=== PATIENT | male | born 1975 | race African-American/Black ===

== ENCOUNTER 2019-03-11 01:21 | Observation (INO) | payer MEDICAID ==
--- NOTE | 2019-03-11 01:22 | EDPHY ---
H & P Time Seen by Provider: 03/11/19 01:21 HPI/ROS: Chief Complaint: Seizure HPI: 43-year-old male with a known seizure disorder brought in by EMS after had only a witnessed tonic-clonic seizure. On EMS arrival the patient was actively seizing. He is given 5 mg of Versed. He has been postictal confused since. Patient has been in the emergency department in the past. Patient has a history of cognitive impairment. He was admitted here and deemed incompetent to make decisions in his admitted to [facility] on the 8th of this month. Is not clear if he has been taking his medications. Also has a history of hypertension. Patient is minimally verbal at baseline. ROS: Not available secondary to the patient's confusion PMH: Seizure disorder, hypertension Social History: No smoking, no alcohol, no recreational drug use Family History: non-contributory Physical Exam: Gen: Awake, Alert, continues, non conversant, postictal HEENT: Nose: no rhinorrhea Eyes: PERRLA, EOMI Mouth: Moist mucosa Neck: Supple, no JVD Chest: nontender, lungs clear to auscultation Heart: S1, S2 normal, no murmur Abd: Soft, non-tender, no guarding Back: no CVA tenderness, no midline tenderness Ext: no edema, non-tender Skin: no rash Neuro: CN II-XII intact, Sensation grossly intact, Strength 5/5 in bilateral upper and lower extremities Constitutional: Initial Vital Signs Temperature (C) 36.7 C 03/11/19 01:29 Heart Rate 98 03/11/19 01:29 Respiratory Rate 18 03/11/19 01:29 Blood Pressure 146/124 H 03/11/19 01:29 O2 Sat (%) 95 03/11/19 01:29 O2 Delivery Mode Room Air Allergies/Adverse Reactions: Unable to Assess Allergy (Unverified 03/11/19 01:29) Medical Decision Making ED Course/Re-evaluation: 43-year-old male brought in for possible seizure. He is currently at his baseline which is minimally verbal. I have discussed with the hospitalist. They will admit to their service for further evaluation and care. Departure - Departure Disposition: [facility] Inpatient Acute Clinical Impression: Seizure disorder Condition: Fair Referrals: Patient,NotPresent [Primary Care Provider] - As per Instructions
[2019-03-11 02:27] LABS: PLATELET COUNT 274 10^3/uL (150-400)
[2019-03-11] MEDS ORDERED: ONDANSETRON DISINTEGRATING 4 MG TAB PO PRN (03:27)
[2019-03-11] MEDS ORDERED: ACETAMINOPHEN 325 MG TAB PO PRN (03:27)
[2019-03-11] MEDS ORDERED: ONDANSETRON 4 MG/2 ML VIAL IVP PRN (03:27)
[2019-03-11] MEDS ORDERED: NS 1,000 ML IV SCH (03:30)
[2019-03-11] MEDS ORDERED: LORazepam 2 MG/ML INJ IVP PRN ×2 (04:00→13:14)
--- NOTE | 2019-03-11 04:05 | PDGENHP ---
History and Physical - Chief Complaint confusion, question of seizure - History of Present Illness Mr Dewitt is 43 yo M with pmhx significant for seizure disorder, cognitive impairment with possible underlying personality d/o who presents to the ED today after he was found down. Patient was discharged on 02/18/2019 after 9 day hospitalization to [facility]. He was deemed competent by psychiatry although he was noted to have some schizotypal personality traits and paranoia particularly regarding his insurance which patient has again today. Patient left [facility]. He requests that he write out most of his answers on paper. He reports that he had meeting with 5 people from [facility] regarding a possible transfer but issues arose with his correction care insurance. I asked the patient why he felt he had to leave in the middle of the night on a Monday and patient responded that he had his food taken away from him and became upset. Patient was subsequently found on the ground by EMS. witnessed tonic-clonic seizure activity and patient was given versed. He appears to be at his baseline mentation. As patient left [facility] he is not eligible for re-admission to [facility]. They report at baseline patient is minimally verbal but alert. It is noted that patient did receive his evening dose of keppra. Currently patient is c/o a frontal headache. no changes in vision and that he is hungry. no other complaints. History Information - Allergies/Home Medication List Allergies/Adverse Reactions: Penicillins Allergy (Verified 03/11/19 03:13) Home Medications: Metoprolol Tartrate 03/11/19 [Last Taken Unknown] Metoprolol Tartrate 03/11/19 [Last Taken Unknown] Multivitamin [One Daily] 1 each PO 03/11/19 [Last Taken Unknown] Sennosides/Docusate Sodium [Colace 2-in-1 Tablet] 1 each PO 03/11/19 [Last Taken Unknown] amLODIPine BESYLATE [Norvasc 10 mg (*)] 10 mg PO DAILY 03/11/19 [Last Taken Unknown] levETIRAcetam [Levetiracetam] 500 mg PO 03/11/19 [Last Taken Unknown] I have personally reviewed and updated: family history, medical history, social history, surgical history - Past Medical History hypertension, seizures Additional medical history: hx of homelessness - Surgical History Reports: no pertinent surgical hx Additional surgical history: patient denies - Family History Positive for: non-pertinent - Social History Smoking Status: Never smoked Alcohol Use: None Drug Use: None Additional social history: Patient with history of homelessness. Recently left [facility] 03/11/2019. Review of Systems Review of Systems: ROS: 10pt was reviewed & negative except for what was stated in HPI & below Constitutional: Reports: no symptoms EENMT: Reports: no symptoms Cardiac: Reports: no symptoms Respiratory: Reports: no symptoms Gastrointestinal: Reports: no symptoms Genitourinary: Reports: no symptoms Muscolosketal: Reports: no symptoms Skin: Reports: dryness Neurological: Reports: headache, seizure Physical Exam Physical Exam: Selected Entries 03/11/19 01:29 Blood Pressure Automatic Method Heart Rate 98 Respiratory 18 Rate O2 Sat (%) 95 Temperature (C) 36.7 C Blood Pressure 146/124 H Mean Arterial 131 H Pressure (MAP) O2 Delivery Room Air Mode Temperature Oral Source Temp Pulse Resp BP Pulse Ox 36.3 C 85 19 168/116 H 97 03/11/19 03:33 03/11/19 03:33 03/11/19 03:33 03/11/19 03:33 03/11/19 03:33 Constitutional: no apparent distress Eyes: PERRL, anicteric sclera, EOMI, No scleral injection Ears, Nose, Mouth, Throat: dry mucous membranes, other (no nasal discharge. ) Cardiovascular: regular rate and rhythym, no murmur, rub, or gallop, pulses symmetric bilaterally, edema (1+ pitting bilateral lower legs. ) Peripheral Pulses: 2+: dorsalis-pedis (R), dorsalis-pedis (L) Respiratory: no respiratory distress, no rales or rhonchi, clear to auscultation , No reduced air movement, No expiratory wheeze, No inspiratory crackles Gastrointestinal: normoactive bowel sounds, soft, non-tender abdomen, other ( obese abdomen) Genitourinary: no bladder tenderness, No mike in urethra Skin: warm, other (dry flaking skin) Musculoskeletal: full muscle strength, other (patient moves all extremities. sits at edge of bed. ), No generalized weakness Neurologic: other (grossly nonfocal. ), No facial droop Psychiatric: other (Patient is a little restless but not agitated. He is upset regarding his experiences he reports from this evening (see HPI). He is oriented to person and place, time was not asked. Patient reports distrust with staff at [facility] because "they took my food... and they told me there was a problem with my [facility] care insurance.") Lab Data & Imaging Review 03/11/19 01:34 03/11/19 01:34 WBC 6.65 10^3/uL (3.80-9.50) 03/11/19 01:34 RBC 5.23 10^6/uL (4.40-6.38) 03/11/19 01:34 Hgb 15.8 g/dL (13.7-17.5) 03/11/19 01:34 Hct 45.1 % (40.0-51.0) 03/11/19 01:34 MCV 86.2 fL (81.5-99.8) 03/11/19 01:34 MCH 30.2 pg (27.9-34.1) 03/11/19 01:34 MCHC 35.0 g/dL (32.4-36.7) 03/11/19 01:34 RDW 13.0 % (11.5-15.2) 03/11/19 01:34 Plt Count 274 10^3/uL (150-400) 03/11/19 01:34 MPV 9.5 fL (8.7-11.7) 03/11/19 01:34 Neut % (Auto) 70.3 % (39.3-74.2) 03/11/19 01:34 Lymph % (Auto) 18.8 % (15.0-45.0) 03/11/19 01:34 Davis % (Auto) 7.1 % (4.5-13.0) 03/11/19 01:34 Eos % (Auto) 2.7 % (0.6-7.6) 03/11/19 01:34 Baso % (Auto) 0.6 % (0.3-1.7) 03/11/19 01:34 Nucleat RBC Rel Count 0.0 % (0.0-0.2) 03/11/19 01:34 Absolute Neuts (auto) 4.68 10^3/uL (1.70-6.50) 03/11/19 01:34 Absolute Lymphs (auto) 1.25 10^3/uL (1.00-3.00) 03/11/19 01:34 Absolute Monos (auto) 0.47 10^3/uL (0.30-0.80) 03/11/19 01:34 Absolute Eos (auto) 0.18 10^3/uL (0.03-0.40) 03/11/19 01:34 Absolute Basos (auto) 0.04 10^3/uL (0.02-0.10) 03/11/19 01:34 Absolute Nucleated RBC 0.00 10^3/uL (0-0.01) 03/11/19 01:34 Immature Gran % 0.5 % (0.0-1.1) 03/11/19 01:34 Immature Gran # 0.03 10^3/uL (0.00-0.10) 03/11/19 01:34 Sodium 140 mEq/L (135-145) 03/11/19 01:34 Potassium 3.9 mEq/L (3.5-5.2) 03/11/19 01:34 Chloride 107 mEq/L (97-110) 03/11/19 01:34 Carbon Dioxide 22 mEq/l (22-31) 03/11/19 01:34 Anion Gap 11 mEq/L (6-14) 03/11/19 01:34 BUN 22 mg/dL (7-23) 03/11/19 01:34 Creatinine 1.5 mg/dL (0.7-1.3) H 03/11/19 01:34 Estimated GFR 51 03/11/19 01:34 Glucose 92 mg/dL (70-100) 03/11/19 01:34 Calcium 9.7 mg/dL (8.5-10.4) 03/11/19 01:34 Assessment & Plan Assessment: Mr Dewitt is 43 yo M with pmhx significant for seizure disorder, cognitive impairment with possible underlying personality d/o who presents to the ED today after he was found down. Seizure disorder (Acute) - patient received evening dose of keppra. He received a dose of keppra in the field for witnessed seizure. He currently appears to be at baseline mentation currently. Seizure precautions in place. IV ativan prn. continue keppra 500mg bid. accelerated HTN - patient is slightly anxious. will give dose of metoprolol now increased from 12.5mg to 25mg bid. continue amlodipine 10 mg daily. CKD stage 3 - creatinine baseline approximately 1.7 per previous records. currently 1.5. FEN - diet as tolerated. electrolytes adequate. IVF 75mls/hr for 1 liter. PPX - SCDs. holding anticoagulation. encourage mobilizations. COR - FULL. Dispo - Patient admitted to observation status on the med/surg floor pending SW/ CM evaluation and recommendations. Patient appears to be at baseline mentation currently. He was not eligible for transfer back to [facility] as patient had left [facility].
[2019-03-11] MEDS: METOPROLOL TARTRATE 25 MG TAB PO SCH ×3 (04:48→19:54)
--- NOTE | 2019-03-11 09:51 | ASMTCASEMG ---
Living Arrangements What is your living Answers: Alone arrangement? Who do you live with? Type Of Residence What kind of residence do Answers: Homeless you live in? Discharge Plan Comments Coordination Status Comments Notes: Patient is a 43yo single male, homeless, with a hx of seizure disorder who was found down and brought to [facility] ED. Patient had a nine day stay at [facility] after his last discharge but left [facility] in the middle of Monday night. Patient will not be eligible to return to [facility] as they will not get paid as a result of patient not staying the 30 days required. Patient also has a hx of cognitive impairment with possible underlying personality disorder. No therapies ordered at this time. D/C plan TBD. CM will follow. Date Signed: 03/11/2019 09:51 AM Electronically Signed By:Narcisa Mathews LCSW
[2019-03-11] MEDS: MULTIVITAMINS 1 EACH TAB PO SCH (09:52)
[2019-03-11] MEDS: levETIRAcetam 500 MG TAB PO SCH ×2 (10:25→19:53)
--- NOTE | 2019-03-11 14:21 | HOSPPROG ---
Hospitalist Progress Note Assessment/Plan: Mr Dewitt is 43 yo M with pmhx significant for seizure disorder, cognitive impairment with possible underlying personality d/o who presents to the ED today after he was found down. Seizure disorder (Acute) - patient received evening dose of keppra. He received a dose of keppra in the field for witnessed seizure. He currently appears to be at baseline mentation currently. Seizure precautions in place. IV ativan prn. continue keppra 500mg bid. accelerated HTN - patient is slightly anxious. will give dose of metoprolol now increased from 12.5mg to 25mg bid. continue amlodipine 10 mg daily. CKD stage 3 - creatinine baseline approximately 1.7 per previous records. currently 1.5. FEN - diet as tolerated. electrolytes adequate. IVF 75mls/hr for 1 liter. PPX - SCDs. holding anticoagulation. encourage mobilizations. COR - FULL. Dispo - Patient admitted to observation status on the med/surg floor pending / CM evaluation and recommendations. Patient appears to be at baseline mentation currently. He was not eligible for transfer back to [facility] as patient had left [place]. working on placement. Subjective: patient initially slipping me notes and not really tallking, however as i continued to talk wiht him he became progressively more coherent until he was speaking very articulately and seemed completely cognitively intact. He perseverates on how he felt he was being not treated well enough at [facility]. Objective: Vital Signs Temp Pulse Resp BP Pulse Ox 36.7 C 81 14 132/78 H 97 03/11/19 11:21 03/11/19 11:21 03/11/19 11:21 03/11/19 11:21 03/11/19 11:21 03/10/19 03/11/19 03/12/19 05:59 05:59 05:59 Intake Total 300 Balance 300 - Physical Exam Constitutional: no apparent distress, appears nourished, not in pain Eyes: PERRL, anicteric sclera, EOMI Ears, Nose, Mouth, Throat: moist mucous membranes, hearing normal, ears appear normal, no oral mucosal ulcers Cardiovascular: regular rate and rhythym, no murmur, rub, or gallop Respiratory: no respiratory distress, no rales or rhonchi, clear to auscultation Gastrointestinal: normoactive bowel sounds, soft, non-tender abdomen, no palpable masses Genitourinary: no bladder fullness, no bladder tenderness, no renal bruits Skin: no rashes or abrasions, no fluctuance, no induration Musculoskeletal: full muscle strength, no muscle tenderness, normal joint ROM Neurologic: AAOx3, sensation intact bilaterally Psychiatric: other (odd affect. ) Lymph, Heme, Immunologic: no cervical LAD, no supraclavicular LAD ICD10 Worksheet Patient Problems: Problems Problem Status Onset Seizure disorder Acute
[2019-03-12] MEDS ORDERED: LORazepam 2 MG/ML INJ IM PRN (03:06)
[2019-03-12] MEDS: levETIRAcetam 500 MG TAB PO SCH (07:36)
[2019-03-12] MEDS: METOPROLOL TARTRATE 25 MG TAB PO SCH (07:38)
[2019-03-12] MEDS: MULTIVITAMINS 1 EACH TAB PO SCH (07:39)
[2019-03-12 15:39] VITALS: BP 142/100
--- NOTE | 2019-03-12 16:25 | ASMTCMCOM ---
CM Note CM Note Notes: Spoke with [facility] to see if the patient is already on their caseload, however they cannot release any information due to confidentiality. CM spoke with Karolyn ([facility]) and went over the plan to discharge the patient to the [facility] for 2 days and encourage him to sign up for support through [facility]. They were informed of patient's seizure disorder, possible hx of TBI and possible underlying mental health problems including personality disorder and schizoaffective disorder. See Mia Dorantes's note in notes section of [facility]. We also gave patient a drug screen to determine if their are substances in his system affecting his behaviors. Currently, the feels patient is decisional.CM to get patient's medications for him from [facility] before he leaves the hospital. CM will follow. Date Signed: 03/12/2019 04:24 PM Electronically Signed By:Narcisa Mathews LCSW
--- NOTE | 2019-03-12 16:59 | PDDCSUM ---
Discharge Summary Discharge Summary: Discharge diagnosis Seizures Hypertension CKD Possible personality disorder The patient was admitted after being found down having a seizure after leaving AMA from [place]. He was restarted on his home Keppra medications given IV fluids and monitored. During my interview with the patient he initially would only speak with slurred speech and writing notes on paper but as I pressed him his speech immediately cleared up and he became completely coherent and able to interact unformed cogent sentences with no slurred speech. He was somewhat argumentative and seemed annoyed but completely cognitively intact. He seemed to be able to switch this on and off depending on who was in the room and I think that he was displaying manipulative behavior. He had no further seizures and I discussed his case with the case management. Patient had left multiple places a against medical advice and who was highly unlikely that we would be able to place him in another longterm facility. In addition there is little chance that the patient will fluid require any rehab. Ultimately the plan was made to discharge the patient with his medications in hand and lift past to [facility] so that he can get established likely at [facility]. I discussed this plan with the patient who was in agreement. Disposition Discharged to [facility]
--- NOTE | 2019-03-12 17:27 | ASMTCMCOM ---
CM Note CM Note Notes: Patient's drug screen came back negative. CM arranged for patient to have 2 nights respite at the [facility] with meals on wheels. CM also mapped patient's medications so he was given his Keppra before discharging. Transport will be arranged through [employer] to take him from the hospital to the [facility]. Patient was also provided with a bus pass so he can go to [facility] and get signed up for the intermediate and [facility]. Patient has not been forthcoming in providing information about his background and/or family or friends he might have. [facility] was notified of our concerns regarding this patient though they could not confirm or deny if they were familiar with him. Patient to discharge today. CM available if new information or needs arise. Date Signed: 03/12/2019 05:27 PM Electronically Signed By:Narcisa Mathews LCSW
--- NOTE | 2019-03-12 17:31 | ASMTDCNOTE ---
Case Management Discharge Discharge Order Complete? Answers: Yes Patient to Obtain Answers: via MAP Medications Transportation Arranged Answers: Other Notes: LY - Mia Dorantes Transport will Pick (Date 03/12/2019 12:00 AM & Time) Discharge Comments Notes: Patient is discharging to the [facility] for 2 nights with meals on wheels. Transport arranged by Mia Dorantes through [employer]. See notes dated 03-12-19 for detailed discharge plan. Date Signed: 03/12/2019 05:30 PM Electronically Signed By:Narcisa Mathews LCSW
== END 2019-03-12 18:39 | disposition home or self-care (01) ==
LOC: EDBD 01:21 → INTOOBSV 02:25 → F3N 03:24
PROVIDERS: ADMIT Family Medicine; ATTEND Internal Medicine
DX: G40.909 Epilepsy, unspecified, not intractable, without status epilepticus (principal); I12.9 Hypertensive chronic kidney disease with stage 1 through stage 4 chronic kidney disease, or unspecified chronic kidney disease; N18.3 Chronic kidney disease, stage 3 (moderate); Z59.0 Homelessness
CPT/HCPCS: 97161; 99285; G0378; G0480